=== PATIENT | male | born 1970 | race Caucasian/White ===

== ENCOUNTER 2017-07-12 10:52 | Emergency (ER) | payer MEDICAID, OTHER ==
[2017-07-12 11:18] LABS: Glucose,Whole Blood 118 mg/dL (75-99)
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
[2017-07-12 11:39] LABS: Basophils % (A) 0 %; CH 30.8; CHCM 33.5; Eosinophils # (A) 0.1 k/uL (0-0.7); Eosinophils % (A) 0 %; HCT 45.2 % (39.0-53.0); HDW 2.09; Luc # (Auto) 0.15; Luc % (Auto) 1; Lymphocytes # (A) 2.1 k/uL (1.0-4.8); Lymphocytes % (A) 19 %; MCH 30.7 pg (25.0-35.0); MCHC 33.2 g/dL (31.0-37.0); MCV 92.4 fL (80.0-100.0); Mean Platelet Volume 6.9; Monocytes # (A) 0.5 k/uL (0-1.0); Monocytes % (A) 4 %; Neutrophils # (A) 8.1 k/uL (1.3-7.7); Neutrophils % (A) 74 %; RBC 4.89 m/uL (4.30-5.90); RDW 13.6 % (11.5-15.5); WBC 10.9 k/uL (3.8-10.6); WBC (Perox) 10.93
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
[2017-07-12 11:52] LABS: ALT 30 U/L (21-72); AST 26 U/L (17-59); Alkaline Phosphatase 64 U/L (38-126); Anion Gap 10 mmol/L; Blood Urea Nitrogen 7 mg/dL (9-20); Calcium 9.7 mg/dL (8.4-10.2); Carbon Dioxide 23 mmol/L (22-30); Chloride 109 mmol/L (98-107); Glucose 95 mg/dL (74-99); Non-African American GFR(MDRD) >60 (>60 ml/min/1.73 sqM); Potassium 4.1 mmol/L (3.5-5.1); Sodium 142 mmol/L (137-145); Total Bilirubin 0.4 mg/dL (0.2-1.3); Total Protein 7.1 g/dL (6.3-8.2)
[2017-07-12 11:53] LABS: Partial Thromboplastin Time 24.9 sec (22.0-30.0); Prothrombin Time 9.8 sec (9.0-12.0)
[2017-07-12 11:57] LABS: Creatine Kinase 432 U/L (55-170)
[2017-07-12] MEDS ORDERED: RX INFO: IV CONTRAST WAS GIVEN 1 EACH MISC MISCELLANE PRN (12:00)
[2017-07-12 12:11] LABS: Creatine Kinase MB 2.4 ng/mL (0.0-2.4); Troponin I <0.012 ng/mL (0.000-0.034)
[2017-07-12 12:19] LABS: Appearance,Urine Clear (Clear); Bilirubin,Urine Negative (Negative); Glucose,Urine (UA) Negative (Negative); Ketones,Urine Negative (Negative); Leukocyte Esterase,Urine Negative (Negative); Nitrite,Urine Negative (Negative); PH, Urine 7.5 (5.0-8.0); Protein,Urine Negative (Negative); Specific Gravity,Urine 1.003 (1.001-1.035); UA Billing (MACRO vs. MICRO) CHEM; Urobilinogen,Urine <2.0 mg/dL (<2.0)
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
[2017-07-12] MEDS ORDERED: IBUPROFEN 600 MG TAB PO STA (12:58)
[2017-07-12 13:29] VITALS: BP 139/82; PULSE 60; RESP 18; TEMP 97.4
== END 2017-07-12 13:29 | disposition home or self-care (01) ==
LOC: EC 10:52
DX: M54.6 Pain in thoracic spine (principal); F17.200 Nicotine dependence, unspecified, uncomplicated
CPT/HCPCS: 36415; 93005; 85379; 80053; 82550; 82553; 84484; 85025; 85610; 85730; 81003; 71020; 71260; 99285; Q9967

== ENCOUNTER → 2017-07-20 | Outpatient (CLI) | payer SELFPAY ==
--- NOTE | 2017-07-20 14:58 | XR ---
EXAMINATION TYPE: XR scapula LT DATE OF EXAM: 07/20/2017 COMPARISON: NONE HISTORY: Pain TECHNIQUE: 2 view submitted FINDINGS: Osseous structures intact. Arthropathy of the AC joint. IMPRESSION: No acute osseous abnormality
--- NOTE | 2017-07-20 15:01 | XR ---
EXAMINATION TYPE: XR chest 2V DATE OF EXAM: 07/20/2017 COMPARISON: NONE TECHNIQUE: PA and lateral views submitted. HISTORY: Pain FINDINGS: The lungs are clear and there is no pneumothorax, pleural effusion, or focal pneumonia. Hypertrophi c and degenerative change spine. IMPRESSION: 1. No acute process.
--- NOTE | 2017-07-20 15:28 | XR ---
EXAMINATION TYPE: XR ribs LT DATE OF EXAM: 07/20/2017 COMPARISON: NONE HISTORY: Pain TECHNIQUE: 4 views submitted FINDINGS: Ribs are intact. The lungs are clear. Arthropathy of the AC joint. IMPRESSION: 1. No acute displaced rib fracture.
== END | disposition home or self-care (01) ==
LOC: RADXRMAIN 14:30
PROVIDERS: ATTEND Family Medicine
DX: R07.81 Pleurodynia (principal); M89.8X1 Other specified disorders of bone, shoulder
CPT/HCPCS: 71046

== ENCOUNTER → 2017-07-25 | Outpatient (CLI) | payer OTHER ==
--- NOTE | 2017-07-25 08:47 | CT ---
EXAMINATION TYPE: CT chest w con DATE OF EXAM: 07/25/2017 COMPARISON: CT chest July 12, 2017 HISTORY: Atypical chest pain, between shoulder blades today CT DLP: 197.1 mGycm. Automated Exposure Control for Dose Reduction was Utilized. TECHNIQUE: CT scan of the thorax is performed following with IV Contrast, patient injected with 100 mL of Omnipaque 300. FINDINGS: LUNGS: Fairly moderate underlying emphysematous change is redemonstrated. There is no suspicious grou ndglass opacity or focal consolidation. No concerning parenchymal nodule or mass is seen. No pleural effusion or pneumothorax is noted. Tracheobronchial tree is patent. MEDIASTINUM: There are no greater than 1 cm hilar or mediastinal lymph nodes. There is prominent but subcentimeter stable right paratracheal lymph node axial image 21. No cardiomegaly or pericardial effusion is seen. OTHER: Small degree of bilateral gynecomastia is seen. Scattered Colonic diverticula are seen. IMPRESSION: Fairly moderate emphysematous change without acute pulmonary process. No significant harris ge from recent CT.
== END | disposition home or self-care (01) ==
LOC: RADCTMAIN 08:05
PROVIDERS: ATTEND Family Medicine
DX: J43.9 Emphysema, unspecified (principal); R07.81 Pleurodynia; R07.89 Other chest pain; M89.8X1 Other specified disorders of bone, shoulder; V89.2XXS Person injured in unspecified motor-vehicle accident, traffic, sequela
CPT/HCPCS: 71260; Q9967

== ENCOUNTER → 2017-08-13 | Outpatient (CLI) | payer OTHER ==
--- NOTE | 2017-08-13 21:29 | XR ---
Left RIBS HISTORY: Chest wall pain 4 views of the left ribs correlated to chest x-ray 07/20/2017, chest CT 07/25/2017 There is no evident displaced rib fracture. No pneumothorax or pleural effusion. IMPRESSION: No acute abnormality. Bone scan could be performed for increased sensitivity as indicated .
== END | disposition home or self-care (01) ==
LOC: RADXRMAIN 15:52
PROVIDERS: ATTEND Family Medicine
DX: R07.89 Other chest pain (principal)

== ENCOUNTER → 2017-08-30 | Outpatient (CLI) | payer OTHER ==
--- NOTE | 2017-08-30 13:40 | MR ---
EXAMINATION TYPE: MR shoulder LT wo con DATE OF EXAM: 08/30/2017 1:23 PM COMPARISON: NONE HISTORY: Left shoulder pain TECHNIQUE: Multiplanar multispin echo imaging of the left shoulder was performed. FINDINGS: Rotator cuff : Mild heterogeneity of the supraspinatus tendon compatible chronic tendinopathy. There is no complete or bursal/articular sided partial rotator cuff tear. The subscapularis constituent of the rotator cuff is intact. Bursa: No bursal effusion or thickening is seen. Musculature: There is no muscular tear, contusion, or atrophy. Acromioclavicular joint : Mild AC joint arthropathy. Small subacromial spur results in mild impingeme nt. Osseous structures : There are no fractures or regions of abnormal bone marrow signal intensity. Long biceps tendon : The biceps tendon is normally situated within the bicipital groove. No complete or partial biceps tendon tear is present. Glenohumeral Joint fluid : There is no glenohumeral joint effusion. Cartilage and Bone : No focal hyaline cartilage defects are noted. No Hill-Sachs, reverse Hill-Sachs, or bony Bankart lesions are seen. Labrum : There are no SLAP or soft tissue Bankart lesions. No paralabral cysts are seen. OTHER FINDINGS : none IMPRESSION: 1. Mild heterogeneity of the supraspinatus tendon compatible chronic tendinopathy. 2. Small subacromial spur resulting in mild impingement.
--- NOTE | 2017-08-30 13:50 | MR ---
EXAMINATION TYPE: MR sun/solomon wo con DATE OF EXAM: 08/30/2017 1:25 PM COMPARISON: NONE HISTORY: Back pain Multiplanar MultiSpin echo imaging of the cervical spine was performed. Comparison: none C2-C3: No evidence for degenerative disc disease. No disc bulge/herniation or protrusion. No Canal stenosis. Foramina are patent bilaterally. C3-C4: No evidence for degenerative disc disease. No disc bulge/herniation or protrusion. No Canal stenosis. Foramina are patent bilaterally. C4-C5: No evidence for degenerative disc disease. No disc bulge/herniation or protrusion. No Canal stenosis. Foramina are patent bilaterally. C5-C6: No evidence for degenerative disc disease. No disc bulge/herniation or protrusion. No Canal stenosis. Foramina are patent bilaterally. C6-C7: No evidence for degenerative disc disease. No disc bulge/herniation or protrusion. No Canal stenosis. Foramina are patent bilaterally. C7-T1: No evidence for degenerative disc disease. No disc bulge/herniation or protrusion. No Canal stenosis. Foramina are patent bilaterally. Cervical segments are intact. There is normal alignment. Cervical spinal cord is of normal signal. Craniovertebral junction relationships are within normal limits. IMPRESSION: 1. No significant abnormality appreciated. EXAMINATION TYPE: MR sun/solomon wo con DATE OF EXAM: 08/30/2017 1:25 PM COMPARISON: NONE HISTORY: Back pain Multiplanar MultiSpin echo imaging of the thoracic spine was performed. Disc spaces: Decreased signal and loss of height T6-7, T7-8, T9-10 compatible with degenerative disc disease. Mild disc bulging at each level greatest at T6-7 with mild effacement ventral thecal sac and mild distortion of the ventral spinal cord without definite cord contact. No central stenosis presen t. Spinal canal: No evidence for canal stenosis. No intrinsic or extrinsic lesion. Thoracic spinal cord: Thoracic spinal cord is of normal caliber and signal. Paraspinal soft tissues: No evidence for paraspinal mass. No destructive lesions seen. Vertebral segments: No evidence for fracture or bony lesion. Scattered ventral spondylosis identifie d. IMPRESSION: 1. Degenerative disc disease as discussed. 2. Disc bulging greatest at C6-7 as noted above.
== END | disposition home or self-care (01) ==
LOC: RADMRIMAIN 12:02
PROVIDERS: ATTEND Orthopaedic Surgery Sports Medicine
DX: M50.10 Cervical disc disorder with radiculopathy, unspecified cervical region (principal); M50.123 Cervical disc disorder at C6-C7 level with radiculopathy; S40.012A Contusion of left shoulder, initial encounter; S46.002A Unspecified injury of muscle(s) and tendon(s) of the rotator cuff of left shoulder, initial encounter; M75.92 Shoulder lesion, unspecified, left shoulder
CPT/HCPCS: 72141; 72146

== ENCOUNTER 2021-04-12 09:06 | Day surgery (SDC) | payer BC, OTHER ==
[2021-04-11 09:49] VITALS: BMI 23.7
[~2021-04-12 09:06] MED LIST: ALPRAZolam 0.25 MG TAB PO PRN; ALPRAZolam 0.5 MG TAB PO PRN; ASPIRIN 325 MG TAB PO ONE; ATORVASTATIN 80 MG TAB PO ONE; HEPARIN SODIUM,PORCINE 10,000 UNIT in SODIUM CHLORIDE 0.9% 1,000 ML IRRIGATION PRN; HEPARIN SODIUM,PORCINE 2,500 UNIT in SODIUM CHLORIDE 0.9% 250 ML IRRIGATION PRN; NITROGLYCERIN SL TABS 0.4 MG TAB SUBLINGUAL PRN; SODIUM CHLORIDE 0.9% 1,000 ML in EMPTY BAG 1 BAG IV ONE
[2021-04-12] MEDS ORDERED: SODIUM CHLORIDE 0.9% 1,000 ML IV ONE (09:24)
[2021-04-12 09:42] VITALS: RESP 16; TEMP 98
[2021-04-12] MEDS ORDERED: fentaNYL (PF) 50 MCG/ML 2 ML AMP IV ONE (10:39)
[2021-04-12] MEDS ORDERED: MIDAZOLAM 2 MG/2 ML VIAL IV ONE (10:40)
[2021-04-12] MEDS ORDERED: LIDOCAINE 1% INJ 10MG/ML (20 ML MDV) SQ ONE (10:42)
[2021-04-12] MEDS: VERAPAMIL SYRINGE (5 MG/10 ML) INTRAARTER ONE ×2 (10:46→10:56)
[2021-04-12] MEDS ORDERED: IOPAMIDOL-370 125ML BTL INJ ONE (10:55)
[2021-04-12] MEDS ORDERED: RX INFO: IV CONTRAST WAS GIVEN 1 EACH MISC MISCELLANE PRN (11:17)
--- NOTE | 2021-04-12 11:18 | P.CARDCATH ---
Description of Procedure: PROCEDURES PERFORMED: Left heart catheterization, bilateral coronary angiography INDICATION: Chest pain concerning for unstable angina HISTORY: Is pleasant 50-year-old male with history of tobacco abuse and family history of coronary artery disease who had an episode last week of chest pain associated with some shortness breath and relieved with nitroglycerin. He has not had recurrence however given significant risk factors heart catheterization was recommended. CONSENT:I have discussed the risks, benefits and alternative therapies for the above-mentioned procedure and for both sedation/analgesia as well as necessary blood product administration, if indicated, as they pertain to this patient. The patient has indicated understanding and acceptance of the risks and procedures discussed. PROCEDURE: After the risks, benefits and alternatives of the above mentioned procedure explained in detail with the patient, informed consent was obtained. Patient was taken to the catheterization lab and prepped and draped in usual fashion. 1% lidocaine was used to anesthetize the right radial artery. A 6- [place] sheath was placed in the right radial artery using modified Seldinger technique. Left coronary angiography was performed with a 5-Malawian JL 3.5 catheter and right coronary angiography was performed with a 5-[place]aw[place] JR5 catheter in various views. A 5-Malaw[place] FR5 catheter was inserted into the left ventricle and pressure measurements were obtained. The right radial sheath was removed and a TR band was placed with hemostasis achieved. The patient tolerated the procedure well. Patient was transported back to the post catheterization holding area in stable condition. Conscious Sedation: Patient was monitored under the direct supervision of vision of myself for conscious sedation using Versed and fentanyl for a total duration of 14 minutes HEMODYNAMICS: Area: 137/76 LV: 132/5, LVEDP 17 SELECTIVE CORONARY ARTERIOGRAPHY: LEFT MAIN: The left main is a large caliber vessel which bifurcates into the LAD and circumflex. There is no significant stenosis. LEFT ANTERIOR DESCENDING CORONARY ARTERY: LAD is a large caliber vessel which wraps around to the apex. There are mild luminal irregularities as well as a more focal 40% mid LAD stenosis. LEFT CIRCUMFLEX CORONARY ARTERY: Left circumflex is a moderate caliber vessel without significant stenosis. RIGHT CORONARY ARTERY: The right coronary artery is a large caliber vessel which gives off a PDA and PLV branch and is the dominant vessel. There are mild luminal irregularities in the proximal RCA 30% stenosis. FINAL IMPRESSION: 1. Mild CAD as described above including 30% RCA stenosis and 40% mid LAD stenosis. 2. Mildly elevated left sided filling pressures PLAN: 1. Aggressive risk factor modification per most recent ACC/AHA guidelines. 2. Discussed tobacco cessation, we will also start high intensity statin for primary prevention. 3. Follow-up in the office in 1-2 weeks.
[2021-04-12 13:24] VITALS: BP 123/67
[2021-04-12 14:34] VITALS: PULSE 52
== END 2021-04-12 14:30 | disposition home or self-care (01) ==
LOC: CATHCVL 09:06
PROVIDERS: ATTEND Internal Medicine
DX: I25.10 Atherosclerotic heart disease of native coronary artery without angina pectoris (principal); F17.200 Nicotine dependence, unspecified, uncomplicated
CPT/HCPCS: 93458; 87635; C1894; J2250; J2001; J3010; J1644; Q9967

== ENCOUNTER → 2021-06-14 | Outpatient (CLI) | payer BC, OTHER | END | disposition home or self-care (01) | LOC: LABWHC1 14:56 | PROVIDERS: ATTEND Family Medicine | DX: J06.9 Acute upper respiratory infection, unspecified (principal) | CPT/HCPCS: U0003; C9803 ==

== ENCOUNTER → 2022-06-05 | Outpatient (CLI) | payer BC, OTHER ==
[2022-06-05 16:25] LABS: ALT 14 U/L (10-49); AST 17 U/L (14-35); Chol/HDL Ratio 4.21 Ratio; LDL Cholesterol,Calculated 127.7 mg/dL (0.0-131.0)
== END | disposition home or self-care (01) ==
LOC: LABWHC1 10:38
PROVIDERS: ATTEND Internal Medicine
DX: E78.2 Mixed hyperlipidemia (principal)
CPT/HCPCS: 36415; 80061; 84450; 84460